=== PATIENT | male | born 1990 | race Two or more races ===

== ENCOUNTER → 2021-04-01 | Outpatient (CLI) | payer OTHER ==
--- NOTE | 2021-04-06 11:17 | ECHO ---
ECHOCARDIOGRAM DATE OF PROCEDURE: 04/01/2021 Age: 30 Gender: Male Height: 178 cm Weight: 84 kg REFERRING PHYSICIAN: Leighton Curran physician assistant director of residence life INDICATION: Rule out cardiac defect MEASUREMENTS: 2D Measurements: Left ventricle diastole 5.2 cm Left ventricle systole 3.2 cm Interventricular septum 0.89 cm Posterior wall 0.93 cm Aortic root 2.9 cm Left atrium 3.2 cm Left atrial volume index 22 Proximal ascending aorta 2.3 cm Doppler Measurements: No aortic stenosis No aortic regurgitation LVOT velocity 115 cm/sec No mitral regurgitation Mitral E velocity 84.9 cm/sec Mitral A velocity 38.5 cm/sec Mitral deceleration time 204 msec Trace tricuspid regurgitation; within normal limits. Trace pulmonic regurgitation; within normal limits. Pulmonary artery systolic pressure 28 mmHg MITRAL ANNULAR TISSUE DOPPLER: E prime septal 9.8 cm/sec E prime lateral 13.9 cm/sec DESCRIPTION: Rhythm was mostly sinus bradycardia. Image quality was fair. No pericardial effusion. This was a 2D, M-mode, color flow Doppler and pulse wave Doppler examination including mitral annular tissue Doppler. CONCLUSIONS: 1. Normal echocardiogram/Doppler. 2. Normal left ventricle internal dimensions and wall thickness. Normal regional LV wall motion and wall thickening. Normal LV systolic function. LVEF 65% by visual estimate. Normal LV diastolic function.
== END ==
LOC: M CARPUL 09:22
PROVIDERS: ATTEND Physician Assistant
DX: Z13.6 Encounter for screening for cardiovascular disorders (principal)